=== PATIENT | male | born 1960 | race Caucasian/White ===

== ENCOUNTER 2019-06-10 08:45 | Inpatient (IN) | payer MEDICARE, MEDICAID ==
[~2019-06-10] VITALS: Ht 177.8 cm; Wt 99.8 kg
[2019-06-10 09:58] LABS: HEMATOCRIT. 35.4 % (42.0-52.0); HEMOGLOBIN. 12.1 g/dL (14.0-18.0); MEAN CORPUSCULAR HEMOGLOBIN 37.6 pg (28.0-32.0); MEAN CORPUSCULAR VOLUME 110.6 fL (80.0-94.0); MEAN PLATELET VOLUME 10.1 fl (7.4-10.4); PLATELET 138 x1000/uL (130-400); RED CELL DISTRIBUTION WIDTH 12.4 % (11.6-14.6)
[2019-06-10 10:01] LABS: CHLORIDE 100 mEq/L (98-107)
[2019-06-10 10:02] LABS: INR 1.2
[2019-06-10 10:06] LABS: ETHANOL BLOOD < 10 mg/dL
[2019-06-10 10:23] LABS: PLATELET ESTIMATE NORMAL
[2019-06-10 10:27] LABS: CLARITY URINE TURBID (CLEAR); COLOR URINE DARK YELLOW (YELLOW); KETONES URINE NEGATIVE (NEGATIVE); LEUKOCYTE ESTERASE URINE 3+ (NEGATIVE); NITRITE URINE POSITIVE (NEGATIVE); OCCULT BLOOD URINE NEGATIVE (NEGATIVE); PH URINE 5.5 (4.5-8.0); PROTEIN URINE 1+ (NEGATIVE); SPECIFIC GRAVITY URINE 1.013 (1.005-1.030)
[2019-06-10 14:10] LABS: HEPATITIS B SURFACE ANTIGEN NEGATIVE
[2019-06-10 14:40] LABS: HEPATITIS A AB IGM NEGATIVE (NEGATIVE)
[2019-06-10 23:08] VITALS: BP 139/80
[2019-06-11] VITALS (7 sets, daily range): BP systolic 101–138; BP diastolic 60–80
[2019-06-11] MEDS ORDERED: MORPHINE SULFATE 2 MG/ML CPJ (NOT FOR IM USE) IV PRN
[2019-06-11] MEDS ORDERED: ONDANSETRON HCL 4MG/2ML INJ IV PRN
[2019-06-11 06:06] LABS: CHLORIDE 104 mEq/L (98-107)
[2019-06-11 06:37] LABS: HEMATOCRIT. 30.3 % (42.0-52.0); HEMOGLOBIN. 10.5 g/dL (14.0-18.0); MEAN CORPUSCULAR HEMOGLOBIN 37.6 pg (28.0-32.0); MEAN CORPUSCULAR VOLUME 108.7 fL (80.0-94.0); MEAN PLATELET VOLUME 10.4 fl (7.4-10.4); PLATELET 142 x1000/uL (130-400); RED BLOOD CELL COUNT 2.79 mill/uL (4.7-6.1); RED CELL DISTRIBUTION WIDTH 12.7 % (11.6-14.6)
[2019-06-11] MEDS ORDERED: DEXTROSE 50% WATER 50ML SYRINGE IV PRN (08:30)
[2019-06-11] MEDS: CEFTRIAXONE 1 G PREMIX 50 ML IV SCH (11:04)
[2019-06-11] MEDS: BLOOD SUGAR DIAGNOSTIC STRIP TEST SCH ×3 (12:31→21:21)
[2019-06-11 12:44] LABS: NUCLEATED RED BLOOD CELLS 1 /100 WBC; PLATELET ESTIMATE NORMAL
[2019-06-11] MEDS: INSULIN LISPRO 100 UNITS/ML SUBCUT SCH ×3 (12:50→21:45)
[2019-06-12] VITALS: BP 103/60
[2019-06-12] MEDS ORDERED: MELO-106 PO (03:43)
[2019-06-12] MEDS ORDERED: FOLI-43 PO (03:43)
[2019-06-12] MEDS ORDERED: OMEP40CA12 PO (03:43)
[2019-06-12] MEDS ORDERED: PREG100C PO (03:43)
[2019-06-12] MEDS ORDERED: GLIP10TA10 PO (03:43)
[2019-06-12] MEDS ORDERED: BACL20TA PO (03:43)
[2019-06-12] MEDS ORDERED: HYDR25TA PO (03:43)
[2019-06-12] MEDS ORDERED: DICL75TA5 PO (03:43)
[2019-06-12] MEDS ORDERED: MIRT15TA6 PO (03:43)
[2019-06-12] MEDS ORDERED: BUPR150T9 PO (03:43)
[2019-06-12] MEDS ORDERED: ALLO300T2 PO (03:43)
[2019-06-12] MEDS ORDERED: HYDR-4009 PO (03:43)
[2019-06-12] MEDS ORDERED: LEVO175T7 PO (03:43)
[2019-06-12] MEDS ORDERED: ARIP5TAB58 PO (03:43)
[2019-06-12] MEDS ORDERED: DONE5TAB26 PO (03:43)
[2019-06-12] MEDS ORDERED: TRAM50TA PO (03:43)
[2019-06-12] MEDS ORDERED: ATOR40TA70 PO (03:43)
[2019-06-12] MEDS ORDERED: TRAZ-251 PO (03:43)
[2019-06-12] MEDS ORDERED: LEVO200T8 PO (03:43)
[2019-06-12] MEDS ORDERED: AMLO10TA80 PO (03:43)
[2019-06-12 04:00] VITALS: BP 102/78
[2019-06-12] MEDS: BLOOD SUGAR DIAGNOSTIC STRIP TEST SCH ×2 (06:39→12:20)
[2019-06-12 08:00] VITALS: BP 100/63
[2019-06-12] MEDS: CEFTRIAXONE 1 G PREMIX 50 ML IV SCH (09:03)
[2019-06-12] MEDS: INSULIN LISPRO 100 UNITS/ML SUBCUT SCH ×2 (09:07→14:03)
[2019-06-12] MEDS ORDERED: LACTULOSE 20G/30ML UDC PO SCH (11:15)
[2019-06-12 12:00] VITALS: BP 115/61
[2019-06-12] MEDS ORDERED: CEPH-569 MT (13:03)
[2019-06-12] MEDS ORDERED: LACT10SO7 MT (13:03)
[2019-06-12 16:16] VITALS: BP 128/69
== END 2019-06-12 17:30 | disposition home or self-care (01) | DRG 432 ==
LOC: ER 08:45 → 6WST 11:49 → EDBEDREQ 11:54 → EDBEDREQTM 11:54 → ENRESERV 21:43
PROVIDERS: ADMIT Internal Medicine; ATTEND Internal Medicine
DX: K70.9 Alcoholic liver disease, unspecified (principal); K85.20 Alcohol induced acute pancreatitis without necrosis or infection; E43 Unspecified severe protein-calorie malnutrition; E87.1 Hypo-osmolality and hyponatremia; N39.0 Urinary tract infection, site not specified; J98.11 Atelectasis; N17.9 Acute kidney failure, unspecified; D50.9 Iron deficiency anemia, unspecified; K57.90 Diverticulosis of intestine, part unspecified, without perforation or abscess without bleeding; I25.10 Atherosclerotic heart disease of native coronary artery without angina pectoris; F10.10 Alcohol abuse, uncomplicated; I10 Essential (primary) hypertension; E78.00 Pure hypercholesterolemia, unspecified; E78.5 Hyperlipidemia, unspecified; G89.29 Other chronic pain; E11.9 Type 2 diabetes mellitus without complications; K21.9 Gastro-esophageal reflux disease without esophagitis; K74.60 Unspecified cirrhosis of liver; Z71.41 Alcohol abuse counseling and surveillance of alcoholic; Z90.49 Acquired absence of other specified parts of digestive tract; Z68.31 Body mass index [BMI] 31.0-31.9, adult
CPT/HCPCS: 36415; 71045; 74176; 74181; 76700; 80053; 80076; 80320; 81003; 82105; 82140; 82150; 82248; 82378; 82962; 83036; 85025; 86301; 86705; 86709; 86803; 87077; 87186; 87340; 93005; 99285; J0696; J1815; G0480

== ENCOUNTER 2019-07-04 09:19 | Inpatient (IN) | payer MEDICARE, MEDICAID ==
[~2019-07-04] VITALS: Ht 177.8 cm; Wt 114.8 kg
[~2019-07-04 09:19] MED LIST: ALLO300T2 PO; ARIP5TAB58 PO; ATOR40TA70 PO; BACL20TA PO; BUPR150T9 PO; CEPH-569 MT; DONE5TAB26 PO; FOLI-43 PO; GLIP10TA10 PO; HYDR-4009 PO; LACT10SO7 MT; LEVO175T7 PO; LEVO200T8 PO; MIRT15TA6 PO; OMEP40CA12 PO; PREG100C PO; TRAM50TA PO; TRAZ-251 PO
[2019-07-04 09:53] LABS: BG CARBOXYHEMOGLOBIN 0.3 % (0.5-1.5); BG DEOXYHEMOGLOBIN 0.1 % (0.0-5.0); BG HCO3 ACT 15.4 mmol/L (22.0-26.0); BG METHEMOGLOBIN 0.1 % (0.0-1.5); BG OXYGEN SATURATION 99.9 % (92.0-98.5); BG OXYHEMOGLOBIN 99.5 % (94.0-97.0); BG PCO2 41.2 mmHg (35.0-45.0); BG PO2 344.1 mmHg (75.0-100.0); BG SAMPLE SITE RIGHT RADIAL; BG TOTAL HEMOGLOBIN 8.6 g/dL (12.0-18.0); BG VENT MODE MASK - NRB
[2019-07-04 09:57] LABS: HEMATOCRIT. 25.1 % (42.0-52.0); HEMOGLOBIN. 8.4 g/dL (14.0-18.0); MEAN CORPUSCULAR HEMOGLOBIN 37.2 pg (28.0-32.0); MEAN CORPUSCULAR VOLUME 111.6 fL (80.0-94.0); MEAN PLATELET VOLUME 10.9 fl (7.4-10.4); PLATELET 96 x1000/uL (130-400); RED BLOOD CELL COUNT 2.25 mill/uL (4.7-6.1)
[2019-07-04] MEDS ORDERED: NALOXONE HCL 1 MG/ML 2ML VIAL IV ONE (10:00)
[2019-07-04 10:02] LABS: CHLORIDE 112 mEq/L (98-107)
[2019-07-04 10:03] LABS: INR 1.2; PROTHROMBIN TIME 12.7 sec (9.6-11.0)
[2019-07-04] MEDS ORDERED: DEXTROSE 50% WATER 50ML SYRINGE IV ONE ×2 (10:05→10:15)
[2019-07-04 10:06] LABS: ETHANOL BLOOD < 10 mg/dL
[2019-07-04 10:21] LABS: CLARITY URINE CLOUDY (CLEAR); COLOR URINE DARK YELLOW (YELLOW); KETONES URINE NEGATIVE (NEGATIVE); LEUKOCYTE ESTERASE URINE 2+ (NEGATIVE); NITRITE URINE POSITIVE (NEGATIVE); OCCULT BLOOD URINE NEGATIVE (NEGATIVE); PROTEIN URINE 1+ (NEGATIVE); SPECIFIC GRAVITY URINE 1.023 (1.005-1.030)
[2019-07-04 10:41] LABS: NUCLEATED RED BLOOD CELLS 1 /100 WBC; PLATELET ESTIMATE DECREASED
[2019-07-04 10:43] LABS: *AMPHETAMINES SCREEN URINE NEGATIVE (NEGATIVE); *BARBITURATES SCREEN URINE NEGATIVE (NEGATIVE)
[2019-07-04 10:44] LABS: *BENZODIAZEPINES SCREEN URINE NEGATIVE (NEGATIVE); *COCAINE SCREEN URINE NEGATIVE (NEGATIVE); METHADONE URINE SCREEN NEGATIVE (NEGATIVE); OPIATES URINE SCREEN NEGATIVE (NEGATIVE); PHENCYCLIDINE URINE SCREEN NEGATIVE (NEGATIVE)
[2019-07-04 10:45] LABS: CANNABINOID URINE SCREEN PRESUMTIVE POSITIVE (NEGATIVE)
[2019-07-04] MEDS ORDERED: CEFTRIAXONE 1 G PREMIX 50 ML IV ONE (11:00)
[2019-07-04] MEDS ORDERED: ONDANSETRON HCL 4MG/2ML INJ IV PRN (12:00)
[2019-07-04] MEDS ORDERED: DEXT 5%/0.45% NACL 1000ML 1,000 ML IV SCH (12:00)
[2019-07-04 14:04] VITALS: BP 122/75
[2019-07-04] MEDS ORDERED: SODIUM BICARBONATE 150 MEQ in DEXTROSE 5% WATER 1,000 ML IV SCH ×2 (14:45→16:00)
[2019-07-04] MEDS ORDERED: CEFEPIME 1,000 MG in DEXTROSE 5% WATER 50 ML IV SCH (15:00)
[2019-07-04] MEDS ORDERED: SODIUM BICARBONATE 8.4% 1 MEQ/ML 50ML SYR IV SCH (15:15)
[2019-07-04 15:38] VITALS: BP 122/75
[2019-07-04 16:00] VITALS: BP 88/55
[2019-07-04] MEDS ORDERED: ALBUMIN HUMAN 25GM/100ML (25%) IV SCH (16:00)
[2019-07-04] MEDS: CEFEPIME 1,000 MG in DEXTROSE 5% WATER 50 ML IV SCH (16:42)
[2019-07-04 18:00] VITALS: BP_SYST 95; BP_DIAS 54; BP_DIAS 64
[2019-07-04 20:00] VITALS: BP 96/47
[2019-07-04] MEDS: DEXTROSE 50% WATER 50ML SYRINGE IV PRN (20:47)
[2019-07-04] MEDS ORDERED: BLOOD SUGAR DIAGNOSTIC STRIP TEST SCH (21:00)
[2019-07-04 22:00] VITALS: BP 116/57
[2019-07-05] VITALS (12 sets, daily range): BP systolic 119–138; BP diastolic 63–87
[2019-07-05] MEDS: SODIUM BICARBONATE 150 MEQ in DEXT 10% WATER 1,000 ML IV SCH ×2 (03:37→23:24)
[2019-07-05] MEDS: BLOOD SUGAR DIAGNOSTIC STRIP TEST SCH ×5 (03:42→20:00)
[2019-07-05 06:26] LABS: HEMATOCRIT. 22.7 % (42.0-52.0); HEMOGLOBIN. 7.9 g/dL (14.0-18.0); MEAN CORPUSCULAR HEMOGLOBIN 37.1 pg (28.0-32.0); MEAN CORPUSCULAR VOLUME 107.3 fL (80.0-94.0); PLATELET 96 x1000/uL (130-400); RED BLOOD CELL COUNT 2.12 mill/uL (4.7-6.1); RED CELL DISTRIBUTION WIDTH 17.7 % (11.6-14.6)
[2019-07-05 10:10] LABS: PLATELET ESTIMATE DECREASED
[2019-07-05] MEDS ORDERED: LORAZEPAM 2MG/ML CPJ IV PRN (11:15)
[2019-07-05] MEDS: DEXTROSE 50% WATER 50ML SYRINGE IV PRN (11:25)
[2019-07-05 13:19] LABS: BG BASE EXCESS -4.4 mmol/L (-2.0-2.0); BG DEOXYHEMOGLOBIN 2.8 % (0.0-5.0); BG HCO3 ACT 20.9 mmol/L (22.0-26.0); BG METHEMOGLOBIN 0.3 % (0.0-1.5); BG OXYGEN SATURATION 97.2 % (92.0-98.5); BG OXYHEMOGLOBIN 96.9 % (94.0-97.0); BG PCO2 39.1 mmHg (35.0-45.0); BG PH 7.345 (7.350-7.450); BG PO2 94.2 mmHg (75.0-100.0); BG SAMPLE SITE RIGHT RADIAL; BG TOTAL HEMOGLOBIN 8.3 g/dL (12.0-18.0); BG VENT MODE NASAL CANNULA
[2019-07-05 16:50] LABS: VITAMIN B12 SERUM 1536 pg/mL (211-911)
[2019-07-05 16:55] LABS: FOLIC ACID (FOLATE) SERUM > 20.00 ng/mL (>5.38)
[2019-07-05] MEDS: CHLORDIAZEPOXIDE 25MG CAPSULE PO SCH ×2 (16:55→23:24)
[2019-07-05] MEDS: MULTIVITAMINS,THER W-MINERALS TABLET PO SCH (16:55)
[2019-07-05] MEDS: FOLIC ACID 1MG TABLET PO SCH (16:55)
[2019-07-05] MEDS: THIAMINE HCL 100MG TABLET PO SCH (16:55)
[2019-07-05] MEDS: CEFEPIME 1,000 MG in DEXTROSE 5% WATER 50 ML IV SCH (16:55)
[2019-07-06] VITALS (12 sets, daily range): BP systolic 93–137; BP diastolic 36–91
[2019-07-06] MEDS: BLOOD SUGAR DIAGNOSTIC STRIP TEST SCH ×7 (04:00→21:06)
[2019-07-06] MEDS: CHLORDIAZEPOXIDE 25MG CAPSULE PO SCH ×3 (06:04→22:00)
[2019-07-06 07:40] LABS: BASOPHILS % 0.5 % (0.0-2.0); EOSINOPHILS % 1.5 % (0.0-5.0); HEMATOCRIT. 23.1 % (42.0-52.0); HEMOGLOBIN. 7.9 g/dL (14.0-18.0); MEAN CORPUSCULAR HEMOGLOBIN 37.3 pg (28.0-32.0); MEAN CORPUSCULAR VOLUME 108.8 fL (80.0-94.0); MEAN PLATELET VOLUME 10.7 fl (7.4-10.4); MONOCYTES % 11.4 % (2.0-8.0); NEUTROPHILS % 65.6 % (40.0-76.0); PLATELET 112 x1000/uL (130-400); RED BLOOD CELL COUNT 2.12 mill/uL (4.7-6.1); RED CELL DISTRIBUTION WIDTH 18.9 % (11.6-14.6)
[2019-07-06 08:01] LABS: CHLORIDE 114 mEq/L (98-107)
[2019-07-06] MEDS: THIAMINE HCL 100MG TABLET PO SCH (09:12)
[2019-07-06] MEDS: FOLIC ACID 1MG TABLET PO SCH (09:12)
[2019-07-06] MEDS: MULTIVITAMINS,THER W-MINERALS TABLET PO SCH (09:12)
[2019-07-06] MEDS ORDERED: LACTULOSE 20G/30ML UDC NG SCH (10:00)
[2019-07-06] MEDS: LACTULOSE 20G/30ML UDC PO SCH ×3 (10:00→22:01)
[2019-07-06] MEDS ORDERED: POTASSIUM CHLORIDE 20MEQ TABLET SR PO NR (10:30)
[2019-07-06] MEDS: CEFEPIME 1,000 MG in DEXTROSE 5% WATER 50 ML IV SCH (17:25)
[2019-07-06] MEDS ORDERED: DEXTROSE 50% WATER 50ML SYRINGE IV PRN (17:45)
[2019-07-06] MEDS: MORPHINE SULFATE 2 MG/ML CPJ (NOT FOR IM USE) IV PRN (18:58)
[2019-07-06] MEDS ORDERED: RIFAXIMIN 550 MG TABLET NG SCH (21:00)
[2019-07-06] MEDS: NYSTATIN POWDER 15GM TOP SCH (21:06)
[2019-07-06] MEDS: INSULIN LISPRO 100 UNITS/ML SUBCUT SCH (21:08)
[2019-07-06] MEDS: RIFAXIMIN 550 MG TABLET PO SCH (21:08)
[2019-07-07] VITALS (12 sets, daily range): BP systolic 108–142; BP diastolic 66–88
[2019-07-07] MEDS: MORPHINE SULFATE 2 MG/ML CPJ (NOT FOR IM USE) IV PRN ×2 (00:30→10:08)
[2019-07-07] MEDS: BLOOD SUGAR DIAGNOSTIC STRIP TEST SCH ×8 (00:30→21:39)
[2019-07-07] MEDS: LACTULOSE 20G/30ML UDC PO SCH ×3 (06:14→21:41)
[2019-07-07] MEDS: CHLORDIAZEPOXIDE 25MG CAPSULE PO SCH ×3 (06:14→21:39)
[2019-07-07] MEDS: INSULIN LISPRO 100 UNITS/ML SUBCUT SCH ×4 (07:20→21:41)
[2019-07-07 07:41] LABS: BASOPHILS % 0.7 % (0.0-2.0); EOSINOPHILS % 1.2 % (0.0-5.0); HEMOGLOBIN. 8.1 g/dL (14.0-18.0); LYMPHOCYTES % 16.5 % (20.0-50.0); MEAN CORPUSCULAR HEMOGLOBIN 36.8 pg (28.0-32.0); MEAN CORPUSCULAR VOLUME 108.6 fL (80.0-94.0); MEAN PLATELET VOLUME 10.7 fl (7.4-10.4); MONOCYTES % 10.6 % (2.0-8.0); PLATELET 118 x1000/uL (130-400); RED BLOOD CELL COUNT 2.21 mill/uL (4.7-6.1); RED CELL DISTRIBUTION WIDTH 18.5 % (11.6-14.6)
[2019-07-07 08:09] LABS: CHLORIDE 112 mEq/L (98-107)
[2019-07-07] MEDS: RIFAXIMIN 550 MG TABLET PO SCH ×2 (08:41→21:39)
[2019-07-07] MEDS: MULTIVITAMINS,THER W-MINERALS TABLET PO SCH (08:41)
[2019-07-07] MEDS: THIAMINE HCL 100MG TABLET PO SCH (08:41)
[2019-07-07] MEDS: FOLIC ACID 1MG TABLET PO SCH (08:42)
[2019-07-07] MEDS: NYSTATIN POWDER 15GM TOP SCH ×2 (08:42→21:40)
[2019-07-07] MEDS ORDERED: LACT10SO7 MT (10:16)
[2019-07-07] MEDS ORDERED: THIA100T88 MT (10:16)
[2019-07-07] MEDS: CEFEPIME 1,000 MG in DEXTROSE 5% WATER 50 ML IV SCH (16:23)
[2019-07-08] VITALS (12 sets, daily range): BP systolic 107–148; BP diastolic 50–84
[2019-07-08] MEDS: CHLORDIAZEPOXIDE 25MG CAPSULE PO SCH ×3 (05:55→22:23)
[2019-07-08] MEDS: LEVOTHYROXINE SODIUM 175MCG TABLET PO SCH (05:55)
[2019-07-08] MEDS: LACTULOSE 20G/30ML UDC PO SCH ×3 (05:55→22:23)
[2019-07-08] MEDS: BLOOD SUGAR DIAGNOSTIC STRIP TEST SCH ×4 (07:03→21:00)
[2019-07-08] MEDS: INSULIN LISPRO 100 UNITS/ML SUBCUT SCH ×4 (07:20→21:00)
[2019-07-08 07:35] LABS: HEMOGLOBIN. 8.3 g/dL (14.0-18.0); MEAN CORPUSCULAR VOLUME 107.6 fL (80.0-94.0); MEAN PLATELET VOLUME 10.6 fl (7.4-10.4); PLATELET 122 x1000/uL (130-400); RED BLOOD CELL COUNT 2.24 mill/uL (4.7-6.1); RED CELL DISTRIBUTION WIDTH 17.8 % (11.6-14.6)
[2019-07-08 07:52] LABS: CHLORIDE 111 mEq/L (98-107)
[2019-07-08] MEDS: MULTIVITAMINS,THER W-MINERALS TABLET PO SCH (08:09)
[2019-07-08] MEDS: RIFAXIMIN 550 MG TABLET PO SCH ×2 (08:09→22:23)
[2019-07-08] MEDS: FOLIC ACID 1MG TABLET PO SCH (08:09)
[2019-07-08] MEDS: THIAMINE HCL 100MG TABLET PO SCH (08:09)
[2019-07-08] MEDS: MORPHINE SULFATE 2 MG/ML CPJ (NOT FOR IM USE) IV PRN (08:25)
[2019-07-08 12:56] LABS: NUCLEATED RED BLOOD CELLS 1 /100 WBC; PLATELET ESTIMATE SLIGHTLY DECREASED
[2019-07-08] MEDS: CEFEPIME 1,000 MG in DEXTROSE 5% WATER 50 ML IV SCH (17:44)
[2019-07-08] MEDS: NYSTATIN POWDER 15GM TOP SCH ×2 (17:46→21:00)
[2019-07-09] VITALS (11 sets, daily range): BP systolic 92–151; BP diastolic 61–99
[2019-07-09] MEDS: LACTULOSE 20G/30ML UDC PO SCH ×3 (06:46→20:57)
[2019-07-09] MEDS: LEVOTHYROXINE SODIUM 175MCG TABLET PO SCH (06:46)
[2019-07-09] MEDS: CHLORDIAZEPOXIDE 25MG CAPSULE PO SCH (06:46)
[2019-07-09] MEDS: BLOOD SUGAR DIAGNOSTIC STRIP TEST SCH ×4 (06:49→20:58)
[2019-07-09] MEDS: INSULIN LISPRO 100 UNITS/ML SUBCUT SCH ×4 (07:20→20:58)
[2019-07-09] MEDS: THIAMINE HCL 100MG TABLET PO SCH (08:45)
[2019-07-09] MEDS: RIFAXIMIN 550 MG TABLET PO SCH ×2 (08:45→20:56)
[2019-07-09] MEDS: FOLIC ACID 1MG TABLET PO SCH (08:45)
[2019-07-09] MEDS: MULTIVITAMINS,THER W-MINERALS TABLET PO SCH (08:45)
[2019-07-09] MEDS: NYSTATIN POWDER 15GM TOP SCH ×2 (08:46→20:59)
[2019-07-09] MEDS: QUETIAPINE FUMARATE 25MG TABLET PO SCH (14:11)
[2019-07-09] MEDS: MORPHINE SULFATE 2 MG/ML CPJ (NOT FOR IM USE) IV PRN (20:57)
[2019-07-10] VITALS (8 sets, daily range): BP systolic 111–143; BP diastolic 44–78
[2019-07-10] MEDS: LACTULOSE 20G/30ML UDC PO SCH ×2 (04:57→14:00)
[2019-07-10] MEDS: LEVOTHYROXINE SODIUM 175MCG TABLET PO SCH (04:57)
[2019-07-10] MEDS: INSULIN LISPRO 100 UNITS/ML SUBCUT SCH ×4 (05:11→22:36)
[2019-07-10] MEDS: BLOOD SUGAR DIAGNOSTIC STRIP TEST SCH ×3 (05:11→16:52)
[2019-07-10 07:40] LABS: HEMATOCRIT. 22.2 % (42.0-52.0); HEMOGLOBIN. 7.6 g/dL (14.0-18.0); MEAN CORPUSCULAR VOLUME 108.5 fL (80.0-94.0); MEAN PLATELET VOLUME 10.5 fl (7.4-10.4); PLATELET 110 x1000/uL (130-400); RED BLOOD CELL COUNT 2.05 mill/uL (4.7-6.1); RED CELL DISTRIBUTION WIDTH 17.4 % (11.6-14.6)
[2019-07-10 07:58] LABS: CHLORIDE 112 mEq/L (98-107)
[2019-07-10] MEDS: MULTIVITAMINS,THER W-MINERALS TABLET PO SCH (09:26)
[2019-07-10] MEDS: QUETIAPINE FUMARATE 25MG TABLET PO SCH (09:26)
[2019-07-10] MEDS: FOLIC ACID 1MG TABLET PO SCH (09:26)
[2019-07-10] MEDS: THIAMINE HCL 100MG TABLET PO SCH (09:26)
[2019-07-10] MEDS: RIFAXIMIN 550 MG TABLET PO SCH ×2 (09:26→22:29)
[2019-07-10] MEDS: NYSTATIN POWDER 15GM TOP SCH ×2 (09:27→21:00)
[2019-07-10 13:33] LABS: PLATELET ESTIMATE SLIGHTLY DECREASED
[2019-07-11] VITALS (10 sets, daily range): BP systolic 100–156; BP diastolic 48–80
[2019-07-11] MEDS: LACTULOSE 20G/30ML UDC PO SCH ×3 (06:00→22:54)
[2019-07-11] MEDS: BLOOD SUGAR DIAGNOSTIC STRIP TEST SCH ×4 (06:50→20:45)
[2019-07-11] MEDS: RIFAXIMIN 550 MG TABLET PO SCH ×2 (08:19→20:48)
[2019-07-11] MEDS: FOLIC ACID 1MG TABLET PO SCH (08:19)
[2019-07-11] MEDS: THIAMINE HCL 100MG TABLET PO SCH (08:19)
[2019-07-11] MEDS: NYSTATIN POWDER 15GM TOP SCH ×2 (08:20→20:50)
[2019-07-11] MEDS: MULTIVITAMINS,THER W-MINERALS TABLET PO SCH (08:20)
[2019-07-11] MEDS: LEVOTHYROXINE SODIUM 175MCG TABLET PO SCH (08:20)
[2019-07-11] MEDS: QUETIAPINE FUMARATE 25MG TABLET PO SCH (08:20)
[2019-07-11] MEDS: INSULIN LISPRO 100 UNITS/ML SUBCUT SCH ×4 (08:21→20:49)
[2019-07-11] MEDS: HYDROCODONE/ACETAMINOPHEN 5/325MG TABLET PO PRN (13:54)
[2019-07-12] VITALS (11 sets, daily range): BP systolic 104–139; BP diastolic 59–85
[2019-07-12] MEDS: LEVOTHYROXINE SODIUM 175MCG TABLET PO SCH (06:07)
[2019-07-12] MEDS: LACTULOSE 20G/30ML UDC PO SCH ×3 (06:07→21:20)
[2019-07-12] MEDS: BLOOD SUGAR DIAGNOSTIC STRIP TEST SCH ×4 (06:18→21:19)
[2019-07-12] MEDS: INSULIN LISPRO 100 UNITS/ML SUBCUT SCH ×4 (06:23→21:21)
[2019-07-12] MEDS: QUETIAPINE FUMARATE 25MG TABLET PO SCH (08:43)
[2019-07-12] MEDS: THIAMINE HCL 100MG TABLET PO SCH (08:43)
[2019-07-12] MEDS: RIFAXIMIN 550 MG TABLET PO SCH ×2 (08:43→21:17)
[2019-07-12] MEDS: MULTIVITAMINS,THER W-MINERALS TABLET PO SCH (08:43)
[2019-07-12] MEDS: FOLIC ACID 1MG TABLET PO SCH (08:43)
[2019-07-12] MEDS: HYDROCODONE/ACETAMINOPHEN 5/325MG TABLET PO PRN ×2 (08:44→21:19)
[2019-07-12] MEDS: NYSTATIN POWDER 15GM TOP SCH ×2 (08:44→21:20)
[2019-07-13] VITALS (11 sets, daily range): BP systolic 102–149; BP diastolic 57–90
[2019-07-13] MEDS: BLOOD SUGAR DIAGNOSTIC STRIP TEST SCH ×4 (05:55→21:00)
[2019-07-13] MEDS: LACTULOSE 20G/30ML UDC PO SCH ×3 (06:06→21:38)
[2019-07-13] MEDS: LEVOTHYROXINE SODIUM 175MCG TABLET PO SCH (06:06)
[2019-07-13] MEDS: INSULIN LISPRO 100 UNITS/ML SUBCUT SCH ×4 (06:41→21:37)
[2019-07-13] MEDS: RIFAXIMIN 550 MG TABLET PO SCH ×2 (08:03→21:37)
[2019-07-13] MEDS: FOLIC ACID 1MG TABLET PO SCH (08:03)
[2019-07-13] MEDS: QUETIAPINE FUMARATE 25MG TABLET PO SCH (08:03)
[2019-07-13] MEDS: THIAMINE HCL 100MG TABLET PO SCH (08:03)
[2019-07-13] MEDS: MULTIVITAMINS,THER W-MINERALS TABLET PO SCH (08:03)
[2019-07-13 08:04] LABS: HEMATOCRIT. 22.6 % (42.0-52.0); HEMOGLOBIN. 7.9 g/dL (14.0-18.0); MEAN CORPUSCULAR HEMOGLOBIN 37.6 pg (28.0-32.0); MEAN CORPUSCULAR VOLUME 107.4 fL (80.0-94.0); MEAN PLATELET VOLUME 10.5 fl (7.4-10.4); PLATELET 125 x1000/uL (130-400); RED BLOOD CELL COUNT 2.11 mill/uL (4.7-6.1); RED CELL DISTRIBUTION WIDTH 15.7 % (11.6-14.6)
[2019-07-13] MEDS: NYSTATIN POWDER 15GM TOP SCH ×2 (08:04→21:00)
[2019-07-13] MEDS: HYDROCODONE/ACETAMINOPHEN 5/325MG TABLET PO PRN ×2 (08:50→12:35)
[2019-07-13 14:06] LABS: PLATELET ESTIMATE SLIGHTLY DECREASED
[2019-07-14] VITALS (10 sets, daily range): BP systolic 93–140; BP diastolic 47–76
[2019-07-14] MEDS: BLOOD SUGAR DIAGNOSTIC STRIP TEST SCH ×2 (05:55→11:31)
[2019-07-14] MEDS: LACTULOSE 20G/30ML UDC PO SCH ×2 (06:00→14:00)
[2019-07-14] MEDS: LEVOTHYROXINE SODIUM 175MCG TABLET PO SCH (06:01)
[2019-07-14] MEDS: INSULIN LISPRO 100 UNITS/ML SUBCUT SCH ×2 (06:26→12:34)
[2019-07-14] MEDS: QUETIAPINE FUMARATE 25MG TABLET PO SCH (08:35)
[2019-07-14] MEDS: RIFAXIMIN 550 MG TABLET PO SCH (08:35)
[2019-07-14] MEDS: FOLIC ACID 1MG TABLET PO SCH (08:36)
[2019-07-14] MEDS: MULTIVITAMINS,THER W-MINERALS TABLET PO SCH (08:36)
[2019-07-14] MEDS: THIAMINE HCL 100MG TABLET PO SCH (08:36)
[2019-07-14] MEDS: HYDROCODONE/ACETAMINOPHEN 5/325MG TABLET PO PRN (08:36)
[2019-07-14] MEDS: NYSTATIN POWDER 15GM TOP SCH (10:02)
== END 2019-07-14 18:04 | disposition home health service (06) | DRG 871 ==
LOC: ER 09:19 → 3WST 10:51 → EDBEDREQ 10:55 → EDBEDREQTM 10:55 → ENRESERV 13:08 → 3WST 07-05 06:55
PROVIDERS: ADMIT Internal Medicine; ATTEND Internal Medicine
DX: A41.9 Sepsis, unspecified organism (principal); G92 Toxic encephalopathy; J96.00 Acute respiratory failure, unspecified whether with hypoxia or hypercapnia; E43 Unspecified severe protein-calorie malnutrition; N17.0 Acute kidney failure with tubular necrosis; J69.0 Pneumonitis due to inhalation of food and vomit; R65.21 Severe sepsis with septic shock; N39.0 Urinary tract infection, site not specified; R18.8 Other ascites; D53.9 Nutritional anemia, unspecified; I12.9 Hypertensive chronic kidney disease with stage 1 through stage 4 chronic kidney disease, or unspecified chronic kidney disease; E11.22 Type 2 diabetes mellitus with diabetic chronic kidney disease; R16.0 Hepatomegaly, not elsewhere classified; D69.6 Thrombocytopenia, unspecified; K57.90 Diverticulosis of intestine, part unspecified, without perforation or abscess without bleeding; I25.10 Atherosclerotic heart disease of native coronary artery without angina pectoris; E87.8 Other disorders of electrolyte and fluid balance, not elsewhere classified; K74.60 Unspecified cirrhosis of liver; N18.9 Chronic kidney disease, unspecified; E78.00 Pure hypercholesterolemia, unspecified; E78.5 Hyperlipidemia, unspecified; F10.10 Alcohol abuse, uncomplicated; F12.90 Cannabis use, unspecified, uncomplicated; G89.29 Other chronic pain; K21.9 Gastro-esophageal reflux disease without esophagitis; M10.9 Gout, unspecified; B96.20 Unspecified Escherichia coli [E. coli] as the cause of diseases classified elsewhere; Z66 Do not resuscitate; Z90.49 Acquired absence of other specified parts of digestive tract; Z68.36 Body mass index [BMI] 36.0-36.9, adult; K72.90 Hepatic failure, unspecified without coma
CPT/HCPCS: 36415; 36600; 70551; 71045; 74181; 76705; 80048; 80053; 80076; 80305; 80320; 81003; 82140; 82248; 82375; 82607; 82746; 82805; 82962; 83036; 83880; 84145; 84443; 84484; 85025; 86301; 86850; 86900; 92610; 93005; 97116; 97162; 97166; 97530; 97535; 99291; J0692; J0696; J1815; J2060; J2270; J2310; J2405; J3490; J7060; J7070; P9047; G0480